=== PATIENT | male | born 1950 | race Caucasian/White ===

== ENCOUNTER → 2016-08-31 | Outpatient (CLI) | payer BC | LOC: RAD 16:57 | DX: M25.561 Pain in right knee (principal); M25.461 Effusion, right knee; M25.861 Other specified joint disorders, right knee | CPT/HCPCS: 73562 ==

== ENCOUNTER → 2016-09-14 | Outpatient (CLI) | payer BC | LOC: KOH-I 12:00 | DX: M54.16 Radiculopathy, lumbar region (principal); R91.1 Solitary pulmonary nodule; M43.17 Spondylolisthesis, lumbosacral region; M51.37 Other intervertebral disc degeneration, lumbosacral region; M51.26 Other intervertebral disc displacement, lumbar region; M25.78 Osteophyte, vertebrae; Z87.891 Personal history of nicotine dependence | CPT/HCPCS: 72148; G0297 ==

== ENCOUNTER → 2021-03-07 | Outpatient (CLI) | payer MEDICARE | LOC: ECHO 11:55 | DX: I25.10 Atherosclerotic heart disease of native coronary artery without angina pectoris (principal); Z95.1 Presence of aortocoronary bypass graft; I51.7 Cardiomegaly; I70.0 Atherosclerosis of aorta | CPT/HCPCS: ECHO; 93306 ==

== ENCOUNTER → 2021-04-10 | Outpatient (CLI) | payer MEDICARE | LOC: KOH-I 14:30 | DX: Z87.891 Personal history of nicotine dependence (principal) | CPT/HCPCS: 71271 ==

== ENCOUNTER 2021-10-14 16:16 | Inpatient (IN) | payer MEDICARE ==
[~2021-10-14] VITALS: Ht 172.7 cm; Wt 97.5 kg
[2021-10-14 18:51] LABS: HEMOGLOBIN 13.4 gm/dl (14.0-17.5); RED BLOOD COUNT 4.53 M/UL (4.20-5.50); WHITE BLOOD COUNT 14.8 K/UL (4.5-11.0)
[2021-10-14 19:29] LABS: BUN/CREATININE RATIO 14 (0-10)
[2021-10-15 04:07] LABS: HEMOGLOBIN 13.3 gm/dl (14.0-17.5); RED BLOOD COUNT 4.5 M/UL (4.20-5.50); WHITE BLOOD COUNT 13.2 K/UL (4.5-11.0)
[2021-10-15 04:20] LABS: BUN/CREATININE RATIO 20 (0-10)
[2021-10-15] MEDS ORDERED: AMLODIPINE BESYL5 MG PO (09:41)
[2021-10-15] MEDS ORDERED: ATORVASTATIN CA40 MG PO (09:41)
[2021-10-15] MEDS ORDERED: METOPROLOL TART25 MG PO (09:42)
[2021-10-15] MEDS ORDERED: FAMOTIDINE20 MG PO (09:42)
[2021-10-15] MEDS ORDERED: OXYBUTYNIN CHLO10 MG PO (09:43)
[2021-10-15] MEDS ORDERED: PAXIL40 MG PO (09:43)
[2021-10-15] MEDS ORDERED: NITROGLYCERIN0.4 MG SL (09:44)
[2021-10-15] MEDS ORDERED: CILOSTAZOL50 MG PO (09:44)
[2021-10-15] MEDS ORDERED: OCUVITE EYE PL1 EACH PO (09:45)
[2021-10-16 05:54] LABS: HEMOGLOBIN 12.3 gm/dl (14.0-17.5); RED BLOOD COUNT 4.15 M/UL (4.20-5.50)
[2021-10-16 05:55] LABS: WHITE BLOOD COUNT 22.7 K/UL (4.5-11.0)
[2021-10-16 06:53] LABS: BUN/CREATININE RATIO 24 (0-10)
[2021-10-16] MEDS ORDERED: LEVOFLOXACIN750 MG PO (09:49)
[2021-10-16] MEDS ORDERED: MEDROL DOSEPAK 24 MG PO (09:49)
[2021-10-16] MEDS ORDERED: SPIRIVA RESPIMAT4 GM INH (09:49)
[2021-10-16] MEDS ORDERED: CILOSTAZOL50 MG PO (09:49)
== END 2021-10-16 11:17 | disposition home or self-care (01) | DRG 189 ==
LOC: ER1 16:16 → CDU 20:21 → M/S 10-15 09:55
PROVIDERS: Physician Assistant Medical; ADMIT Internal Medicine
DX: J96.01 Acute respiratory failure with hypoxia (principal); J44.1 Chronic obstructive pulmonary disease with (acute) exacerbation; I74.5 Embolism and thrombosis of iliac artery; M79.81 Nontraumatic hematoma of soft tissue; Z20.822 Contact with and (suspected) exposure to COVID-19; I73.9 Peripheral vascular disease, unspecified; G89.29 Other chronic pain; J20.9 Acute bronchitis, unspecified; I25.10 Atherosclerotic heart disease of native coronary artery without angina pectoris; E11.9 Type 2 diabetes mellitus without complications; E78.00 Pure hypercholesterolemia, unspecified; Z87.891 Personal history of nicotine dependence; Z71.3 Dietary counseling and surveillance
CPT/HCPCS: 0240U; 36415; 36600; 71045; 75635; 80048; 80053; 81001; 82550; 82553; 82803; 82962; 83605; 84484; 85025; 85027; 85610; 94640; 94664; 94760; 96365; 96375; 96376; 99285; J1956; J2930; Q9967